=== PATIENT | female | born 1985 | race Caucasian/White ===

== ENCOUNTER 2016-12-28 10:09 | Emergency (ER) | payer MEDICAID ==
[2016-02-19 10:10] VITALS: BMI 35.4
[~2016-12-28 10:09] MED LIST: FOLTX TABLET1 EACH PO; HYDROCODONE-APA1 TAB PO; IBUPROFEN600 MG PO; PRENATAL COMPLE1 TAB PO
[2016-12-28 11:36] LABS: BASOPHILS 0.1 % (0-2); EOSINOPHILS 0.7 % (0-7); HEMATOCRIT 34.4 % (36.0-48.0); HEMOGLOBIN 11.6 g/dL (12-16); IMMATURE GRANULOCYTES 1.3 % (0-5); LYMPHOCYTES 16.5 % (15-50); MCH 30.2 pg (26.0-34.0); MCHC 33.7 g/dL (31.0-37.0); MCV 89.6 fL (80.0-100.0); MEAN PLATELET VOLUME 10.3 fL (7.4-10.4); MONOCYTES 4.5 % (2-11); NEUTROPHILS 76.9 % (40-80); PLATELET COUNT 223 10x3/uL (130-400); RBC 3.84 10x6/uL (4.00-5.40); RDW 13.8 % (11.5-14.5); WBC 14.9 10x3/uL (4.8-10.8)
[2016-12-28 11:56] LABS: APPEARANCE CLOUDY (CLEAR); COLOR YELLOW (YELLOW); LEUKOCYTE ESTERASE TRACE (NEGATIVE)
[2016-12-28 11:57] LABS: BACTERIA MODERATE /hpf (NONE SEEN); BILIRUBIN NEGATIVE (NEGATIVE); GLUCOSE NEGATIVE (NEGATIVE); KETONE NEGATIVE (NEGATIVE); MUCUS >1+ /lpf (NONE SEEN); NITRITE NEGATIVE (NEGATIVE); PROTEIN NEGATIVE (NEGATIVE); UROBILINOGEN NORMAL (NORMAL); WHITE CELLS - URINE OCC /hpf (0-5)
== END 2016-12-28 12:40 | disposition home or self-care (01) ==
LOC: D.ER 10:09
PROVIDERS: Physician Assistant
DX: J20.9 Acute bronchitis, unspecified (principal); J06.9 Acute upper respiratory infection, unspecified; R30.0 Dysuria; R09.89 Other specified symptoms and signs involving the circulatory and respiratory systems; R50.9 Fever, unspecified; R06.2 Wheezing; J02.9 Acute pharyngitis, unspecified; F17.200 Nicotine dependence, unspecified, uncomplicated

== ENCOUNTER 2017-03-23 14:21 | Emergency (ER) | payer MEDICAID ==
[2016-02-19 10:10] VITALS: BMI 35.4
[2017-03-23 16:25] LABS: BASOPHILS 0.1 % (0-2); EOSINOPHILS 0.9 % (0-7); HEMATOCRIT 35.9 % (36.0-48.0); IMMATURE GRANULOCYTES 0.9 % (0-5); LYMPHOCYTES 19.1 % (15-50); MCH 29.8 pg (26.0-34.0); MCHC 33.4 g/dL (31.0-37.0); MCV 89.1 fL (80.0-100.0); MEAN PLATELET VOLUME 11.3 fL (7.4-10.4); PLATELET COUNT 231 10x3/uL (130-400); RBC 4.03 10x6/uL (4.00-5.40); WBC 16.1 10x3/uL (4.8-10.8)
[2017-03-23 16:40] LABS: ALBUMIN 2.4 g/dL (3.4-5.0); ALKALINE PHOSPHATASE 110 U/L (46-116); ALT (SGPT) 17 U/L (10-68); CALC OSMOLALITY 270 mosm/kg (275-300); CALCIUM 9.5 mg/dL (8.5-10.1); CARBON DIOXIDE 21.7 mmol/L (21.0-32.0); CHLORIDE - SERUM 105 mmol/L (98-107); CREATININE - SERUM 0.6 mg/dL (0.6-1.3); GLUCOSE 82 mg/dL (74-106); POTASSIUM - SERUM 3.7 mmol/L (3.5-5.1); PROTEIN - SERUM 6.4 g/dL (6.4-8.2); SODIUM 137 mmol/L (136-145); UREA NITROGEN 7 mg/dL (7-18); eGFR NON AFRICAN AMERICAN > 90 mL/min (90-120)
[2017-03-23 16:44] LABS: APTT 29.3 SECONDS (22.8-39.4); INR 0.96 (0.85-1.17); PROTIME 12.6 SECONDS (11.6-15.0)
== END 2017-03-23 17:09 | disposition home or self-care (01) ==
LOC: D.ER 14:21
PROVIDERS: Physician Assistant Medical
DX: O26.893 Other specified pregnancy related conditions, third trimester (principal); Z3A.36 36 weeks gestation of pregnancy; S76.311A Strain of muscle, fascia and tendon of the posterior muscle group at thigh level, right thigh, initial encounter; S86.111A Strain of other muscle(s) and tendon(s) of posterior muscle group at lower leg level, right leg, initial encounter; X58.XXXA Exposure to other specified factors, initial encounter; Y93.89 Activity, other specified; Y92.029 Unspecified place in mobile home as the place of occurrence of the external cause

== ENCOUNTER 2019-07-01 20:25 | Emergency (ER) | payer MEDICAID ==
[~2019-07-01] VITALS: Ht 175.3 cm; Wt 66.4 kg
[2019-07-01 20:51] VITALS: Ht 175.3 cm; Wt 66.4 kg
[2019-07-01] MEDS ORDERED: FERROUS SULFAT325 MG PO (20:53)
[2019-07-01] MEDS ORDERED: [UNRECOGNIZED DRUG - OTHER] IM (20:53)
[2019-07-01 21:06] LABS: BASOPHILS 0.2 % (0-2); EOSINOPHILS 1.6 % (0-7); HEMATOCRIT 36.3 % (36.0-48.0); HEMOGLOBIN 11.3 g/dL (12-16); IMMATURE GRANULOCYTES 0.3 % (0-5); MCH 25.5 pg (26.0-34.0); MCHC 31.1 g/dL (31.0-37.0); MCV 81.9 fL (80.0-100.0); MEAN PLATELET VOLUME 9.4 fL (7.4-10.4); MONOCYTES 7.8 % (2-11); NEUTROPHILS 66.1 % (40-80); RBC 4.43 10x6/uL (4.00-5.40); WBC 10.4 10x3/uL (4.8-10.8)
[2019-07-01 21:09] LABS: PLATELET COUNT 293 10x3/uL (130-400)
[2019-07-01 21:22] LABS: CALC OSMOLALITY 281 mosm/kg (275-300); CALCIUM 8.7 mg/dL (8.5-10.1); CARBON DIOXIDE 24.6 mmol/L (21.0-32.0); CHLORIDE - SERUM 108 mmol/L (98-107); CREATININE - SERUM 0.8 mg/dL (0.6-1.3); GLUCOSE 95 mg/dL (74-106); POTASSIUM - SERUM 3.9 mmol/L (3.5-5.1); SODIUM 142 mmol/L (136-145); UREA NITROGEN 11 mg/dL (7-18); eGFR NON AFRICAN AMERICAN 87 mL/min (90-120)
[2019-07-01 21:27] LABS: ALBUMIN 3.3 g/dL (3.4-5.0); ALKALINE PHOSPHATASE 82 U/L (30-120); ALT (SGPT) 22 U/L (10-68); BILIRUBIN - TOTAL 0.07 mg/dL (0.2-1.3)
[2019-07-01 22:14] LABS: ERYTHROCYTE SEDIMENTATION RATE 15 mm/hr (0-20)
[2019-07-01] MEDS ORDERED: KETOPROFEN200 MG PO (22:35)
[2019-07-01 23:03] LABS: BILIRUBIN NEGATIVE (NEGATIVE); GLUCOSE NEGATIVE (NEGATIVE); KETONE SMALL mg/dL (NEGATIVE); NITRITE NEGATIVE (NEGATIVE); SPECIFIC GRAVITY 1.015 (1.005-1.020); UROBILINOGEN NORMAL (NORMAL)
[2019-07-01 23:04] LABS: HCG URINE NEGATIVE (NEGATIVE); RED CELLS - URINE 0-5 /hpf (0-5)
[2019-07-01 23:06] VITALS: BP 105/70
== END 2019-07-01 23:07 | disposition home or self-care (01) ==
LOC: D.ER 20:25
PROVIDERS: Family Medicine
DX: M25.50 Pain in unspecified joint (principal); L40.50 Arthropathic psoriasis, unspecified

== ENCOUNTER → 2019-12-18 15:06 | Outpatient (CLI) | payer MEDICAID ==
[2019-07-01 20:51] VITALS: BMI 21.6
[~2019-12-18 15:06] MED LIST changes: +FERROUS SULFAT325 MG PO; +KETOPROFEN200 MG PO; +[UNRECOGNIZED DRUG - OTHER] IM
== END | disposition home or self-care (01) ==
LOC: D.MAMMO 15:00
PROVIDERS: ATTEND Obstetrics & Gynecology
DX: N63.11 Unspecified lump in the right breast, upper outer quadrant (principal)

== ENCOUNTER 2020-01-10 11:04 | Emergency (ER) | payer MEDICAID ==
[~2020-01-10] VITALS: Ht 175.3 cm; Wt 70.5 kg
[2020-01-10 11:12] VITALS: Ht 175.3 cm; Wt 70.5 kg
[2020-01-10 11:45] LABS: BASOPHILS 0.2 % (0-2); EOSINOPHILS 0.5 % (0-7); HEMATOCRIT 39.5 % (36.0-48.0); HEMOGLOBIN 12.2 g/dL (12-16); IMMATURE GRANULOCYTES 0.3 % (0-5); LYMPHOCYTES 10.1 % (15-50); MCH 25.1 pg (26.0-34.0); MCHC 30.9 g/dL (31.0-37.0); MCV 81.1 fL (80.0-100.0); MEAN PLATELET VOLUME 9.4 fL (7.4-10.4); MONOCYTES 4.7 % (2-11); NEUTROPHILS 84.2 % (40-80); PLATELET COUNT 264 10x3/uL (130-400); RBC 4.87 10x6/uL (4.00-5.40); RDW 22.9 % (11.5-14.5); WBC 13.4 10x3/uL (4.8-10.8)
[2020-01-10 11:48] LABS: NITRITE NEGATIVE (NEGATIVE)
[2020-01-10 11:49] LABS: BILIRUBIN NEGATIVE (NEGATIVE); KETONE NEGATIVE (NEGATIVE); UROBILINOGEN NORMAL (NORMAL)
[2020-01-10 11:51] LABS: BACTERIA FEW /hpf (NONE SEEN); EPITHELIAL CELLS 0-5 /hpf (0-5); RED CELLS - URINE 0-5 /hpf (0-5); WHITE CELLS - URINE 0-5 /hpf (0-5)
[2020-01-10 11:52] LABS: ANION GAP 11.7 mmol/L (8-16); CALCIUM 8.8 mg/dL (8.5-10.1); CARBON DIOXIDE 26.1 mmol/L (21.0-32.0); POTASSIUM - SERUM 3.8 mmol/L (3.5-5.1)
[2020-01-10 11:58] LABS: ALBUMIN 3.9 g/dL (3.4-5.0); BILIRUBIN - TOTAL 0.14 mg/dL (0.2-1.3); PROTEIN - SERUM 7.3 g/dL (6.4-8.2)
[2020-01-10 12:08] LABS: HCG SERUM NEGATIVE (NEGATIVE)
[2020-01-10] MEDS ORDERED: HYDROCODON-ACE1 EAC7 PO (16:07)
[2020-01-10 16:25] VITALS: BP 117/76
[2020-01-11] MEDS ORDERED: FOLBIC RF TABL1 EACH PO (15:18)
== END 2020-01-10 16:26 | disposition home or self-care (01) ==
LOC: D.ER 11:04
PROVIDERS: Family Medicine
DX: N83.292 Other ovarian cyst, left side (principal); R10.32 Left lower quadrant pain

== ENCOUNTER 2020-01-11 14:27 | Day surgery (SDC) | payer MEDICAID ==
[~2020-01-11] VITALS: Ht 175.3 cm; Wt 73.5 kg
[~2020-01-11 14:27] MED LIST changes: +HYDROCODON-ACE1 EAC7 PO
[2020-01-11 14:56] LABS: HCG URINE NEGATIVE (NEGATIVE)
[2020-01-11 15:05] LABS: UDS - AMPHET NEGATIVE QUAL (NEGATIVE); UDS - BARB NEGATIVE QUAL (NEGATIVE); UDS - BENZO NEGATIVE QUAL (NEGATIVE); UDS - COCAINE NEGATIVE QUAL (NEGATIVE); UDS - OPIATE POSITIVE QUAL (NEGATIVE); UDS - PCP NEGATIVE QUAL (NEGATIVE); UDS - THC NEGATIVE QUAL (NEGATIVE)
[2020-01-11 15:06] LABS: ANION GAP 6.8 mmol/L (8-16); CALCIUM 8.7 mg/dL (8.5-10.1); CARBON DIOXIDE 30.7 mmol/L (21.0-32.0); POTASSIUM - SERUM 3.5 mmol/L (3.5-5.1)
[2020-01-11 15:13] LABS: BASOPHILS 0.2 % (0-2); EOSINOPHILS 0.5 % (0-7); HEMATOCRIT 35.7 % (36.0-48.0); HEMOGLOBIN 11.1 g/dL (12-16); IMMATURE GRANULOCYTES 0.4 % (0-5); MCH 25.2 pg (26.0-34.0); MCHC 31.1 g/dL (31.0-37.0); MEAN PLATELET VOLUME 9.7 fL (7.4-10.4); MONOCYTES 7.5 % (2-11); NEUTROPHILS 70.4 % (40-80); PLATELET COUNT 260 10x3/uL (130-400); RBC 4.41 10x6/uL (4.00-5.40); RDW 22.7 % (11.5-14.5); WBC 13.7 10x3/uL (4.8-10.8)
[2020-01-11] MEDS ORDERED: FOLBIC RF TABL1 EACH PO (15:18)
[2020-01-11 15:47] VITALS: BP 113/75; Ht 175.3 cm; Wt 73.5 kg
[2020-01-11 15:59] LABS: HCG URINE NEGATIVE (NEGATIVE)
--- NOTE | 2020-01-11 19:17 | NUR ---
1910 ASSITED UP TO BATHROOM. PT VOIDED X1. 2 SAMLL LAP SITES AND LOWER SUPRA PUBIC INCISION WITH DURABOND NOTED. NO SWELLING OR DISCOMFORT. ORDERS NOTED
--- NOTE | 2020-01-11 19:52 | NUR ---
1934 IV REMOVED AND INSTRUCTIONS GIVEN OT PT
--- NOTE | 2020-01-12 00:05 | OP ---
PATIENT NAME: KIM VALDEZ MEDICAL RECORD: [id number] :86 LOCATION:D.OPS ADMISSION DATE: SURGEON: ANDREI LAROSE MD DATE OF OPERATION: 01/11/2020 PREOPERATIVE DIAGNOSES: 1. Dysfunctional uterine bleeding. 2. Pelvic pain. 3. Ovarian mass. POSTOPERATIVE DIAGNOSES: 1. Dysfunctional uterine bleeding. 2. Pelvic pain. 3. Ovarian mass. 4. Left ovarian torsion. PROCEDURES: 1. Diagnostic laparoscopy. 2. Left salpingo-oophorectomy. 3. Dilation and curettage. SURGEON: Andrei Larose MD ANESTHESIA: General. FINDINGS: Uterus is slightly enlarged and boggy. There is a 7 to 8 cm dusky appearing ovary in the left adnexa with 2 complete revolutions of torsion on the infundibulopelvic ligament. There are moderate amounts of endometrial curettings return. Unremarkable vagina and cervix. SPECIMENS REMOVED: 1. Left ovary and tube with mass. 2. Endometrial curettings. SPECIMEN DISPOSITION: All specimens to pathology. ESTIMATED BLOOD LOSS: Less than 50 cc. FLUIDS: 1200 cc of lactated Ringer's. URINE OUTPUT: Quantity sufficient for part of this procedure. COMPLICATIONS: None. DRAINS: None. INDICATION: The patient is a 34-year-old female who was seen in the Emergency Room previously for worsening abdominal and pelvic pain. Workup included imaging, which showed ovarian mass. The patient was referred back to clinic. The patient has also been undergoing workup in clinic for dysfunctional uterine bleeding. The patient has future fertility desires and wishes to discuss BTR in postoperative timeframe. Currently, she is consented for diagnostic laparoscopy and any indicated procedure with dilation and curettage. DESCRIPTION OF PROCEDURE: After informed consent was assured, the patient was OPERATIVE REPORT [id number] KIM VALDEZ taken to the operating room where anesthetic was obtained. The patient has been prepped and draped. An incision was made at the umbilicus to accommodate a 5-mm trocar. This trocar was inserted without difficulty and pneumoperitoneum developed. Accessory port trocars were now placed in the midline and right lower quadrant. With the patient in Trendelenburg position and the bowel swept free of the pelvis, the above findings were encountered. The right ovary is unremarkable. Left ovary is dusky and enlarged with mass present. The distal portion of the left tube is involved. Using a grasper, the hilum of the ovary is elevated and placed on gentle traction medially. From the right lower quadrant port, the Thunderbeat coagulation cutter was inserted and then the mesosalpinx and infundibulopelvic ligaments serially compressed, coagulated, and until the ovaries free. The blood clot contained within the ovarian mass is removed. This enable the mass to be placed into an Endobag. Once the mass was safely placed into an Endobag, Pneumoperitoneum is released and a small mini laparotomy was performed to extract the mass. The fascia was closed along with the skin and pneumoperitoneum reestablished. The pelvis was inspected and adequate hemostasis has been achieved. The pelvis was copiously irrigated, irrigant removed. The trocars were now removed and all skin sites were closed. Attention was now directed to the vagina. The legs were positioned for the vaginal portion of this case. A bivalve speculum was introduced in the vagina. The cervix grasped with a single tooth tenaculum and the cervix serially dilated to accommodate a #2 curette. This curette was passed gently to the fundus and now applying pressure against the uterine wall and withdrawing the device, curettage was performed. This is performed until a good cry was obtained throughout. The tissue is removed from the vaginal vault and placed in a specimen cup. Single tooth tenaculum, which was used to steady the cervix during this procedure is removed with adequate hemostasis. Sponge, lap, needle counts were correct times 2. The patient was awakened and taken to the recovery area in stable condition. TRANSINT:[id number] Voice Confirmation ID: [id number] DOCUMENT ID: [id number] ANDREI LAROSE MD at 0005 CC: [id number] DICTATION DATE: 01/11/20 182 EMBOSSING TOOLSETTER: 01/11/206 [facility] 01/11/20 [id number] [place] [address]
== END 2020-01-11 19:45 | disposition home or self-care (01) ==
LOC: D.OPS 14:27
PROVIDERS: ATTEND Obstetrics & Gynecology
DX: N93.8 Other specified abnormal uterine and vaginal bleeding (principal); R10.2 Pelvic and perineal pain; R19.00 Intra-abdominal and pelvic swelling, mass and lump, unspecified site; N83.512 Torsion of left ovary and ovarian pedicle